=== PATIENT | male | born 1945 | race Caucasian/White ===

== ENCOUNTER → 2023-10-18 14:58 | Outpatient (REF) | payer MEDICARE, BC, SELFPAY | LOC: HWRAD 14:58 | PROVIDERS: ATTENDING PHYSICIAN Otolaryngology; FAMILY PHYSICIAN Family Medicine | DX: H65.22 Chronic serous otitis media, left ear (principal) | CPT/HCPCS: 70480 ==

== ENCOUNTER → 2023-11-03 15:07 | Outpatient (REF) | payer MEDICARE, BC, SELFPAY | LOC: CLAB 15:07 | PROVIDERS: ATTENDING PHYSICIAN Otolaryngology | DX: H60.391 Other infective otitis externa, right ear (principal) | CPT/HCPCS: 87070 ==

== ENCOUNTER → 2025-06-02 13:56 | Outpatient (REF) | payer MEDICARE, BC, SELFPAY | LOC: HWRAD 13:56 | PROVIDERS: ATTENDING PHYSICIAN Family Medicine | DX: R91.8 Other nonspecific abnormal finding of lung field (principal) | CPT/HCPCS: 71250 ==

== ENCOUNTER → 2025-06-11 08:09 | Outpatient (REF) | payer MEDICARE, BC, SELFPAY | LOC: HWRCS 08:09 | PROVIDERS: ATTENDING PHYSICIAN Family Medicine | DX: I34.0 Nonrheumatic mitral (valve) insufficiency (principal) | CPT/HCPCS: 93306 ==